=== PATIENT | male | born 1985 | race Caucasian/White ===

== ENCOUNTER 2018-01-28 21:00 | Emergency (ER) | payer MEDICAID ==
[2018-01-28] MEDS ORDERED: LORazepam 1 MG TAB PO ONE (21:47)
--- NOTE | 2018-01-28 21:47 | EDPHY ---
H & P Time Seen by Provider: 01/28/18 21:14 HPI/ROS: CHIEF COMPLAINT: "I'm withdrawing, I'm here because of her" HISTORY OF PRESENT ILLNESS: 32-year-old male arrives via private vehicle with his girlfriend. Patient states that he self discontinued his methadone 2 days ago "cold turkey" because he did not think was working for him. His primary complaint is high level of anxiety currently. States that the primary reason for coming to the ER is "because of her" (pointing to his girlfriend). Since discontinuing his methadone he has been drinking heavy amounts of alcohol, has also been using IV heroin, intranasal Adderall. Admits to alcohol use this evening. States that because it is currently Memorial Day of a long weekend he has been drinking more than usual. No suicidal or homicidal ideation. No abdominal pain. No chest pain. No hallucination. REVIEW OF SYSTEMS: A ten point review of systems was performed and is negative with the exception of the items mentioned in the HPI PAST MEDICAL & SURGICAL HISTORY: Polysubstance abuse SOCIAL HISTORY: Positive for alcohol use, IV heroin use, intranasal Adderall , IV methadone PHYSICAL EXAM (Prior to examination, patient consented to physical exam, hands were washed and my usual and customary physical exam procedures followed) 1) GENERAL: Well-developed, well-nourished, alert and oriented. Appears nontoxic answering questions appropriately 2) HEAD: Normocephalic, atraumatic 3) HEENT: Pupils equal, round, reactive to light bilaterally. Sclera anicteric. Nasopharynx, oropharynx, clear, no lesions. Moist mucous membrane smells of alcohol 4) NECK: Full range of motion, no meningeal signs. 5) LUNGS: Clear auscultation bilaterally, no wheezes, no rhonchi, no retractions. 6) HEART: Regular rate and rhythm, no murmur, no heave, no gallop. 7) ABDOMEN: No guarding, no rebound, no focal tenderness, negative McBurney's, negative Jean-Baptiste's, negative Rovsing's, negative peritoneal sign, 8) MUSCULOSKELETAL: Left medial bicep track loco noted. No signs of infection at this site. Distal neurovascular status is normal. Moving all extremities, no focal areas of tenderness, no obvious trauma. No peripheral edema or discoloration. 9) BACK: No CVA tenderness, no midline vertebral tenderness, no fluctuance, no step-off, no obvious trauma, no visual or palpable abnormality. 10) SKIN: No rash, no petechiae. 11) Psychiatric: Patient is oriented X 3, there is no agitation. DIFFERENTIAL DIAGNOSIS: In no particular include but limited to opiate withdrawal, acute alcohol intoxication, alcohol withdrawal, polysubstance abuse Smoking Status: Heavy smoker Constitutional: Initial Vital Signs Temperature (C) 36.9 C 01/28/18 21:08 Heart Rate 88 01/28/18 21:08 Respiratory Rate 15 01/28/18 21:08 Blood Pressure 144/87 H 01/28/18 21:08 O2 Sat (%) 91 L 01/28/18 21:08 O2 Delivery Mode Room Air O2 (L/minute) 2 MDM/Departure - MDM Medications Given: Discontinued Medications Chlordiazepoxide (Librium 25 Mg Prepack#6) 1 btl TAKEHOME EDNOW ONE Stop: 01/28/18 21:53 Last Admin: 01/28/18 21:58 Dose: 1 btl Lorazepam (Ativan) 1 mg PO EDNOW ONE Stop: 01/28/18 21:48 Last Admin: 01/28/18 21:58 Dose: 1 mg ED Course/Re-evaluation: This patient denies suicidal homicidal ideation. He admits to polysubstance abuse. Requesting prescription for methadone. Discussed my inability to provide prescription for methadone from the ER. He has a auto painter whom he sees. I recommend he contact her office 1st thing in the morning. I think [facility]. Doubt delirium tremens. I provided his girlfriend with this information she will plan on driving him there if he is agreeable with this. I do not think he meets criteria for 72 hr M1 hold. The patient and his girlfriend feel comfortable being discharged. Usual and customary discharge precautions and instructions provided. Care of patient under supervision of secondary supervising physician Dr Lira . - Depart Disposition: Home, Routine, Self-Care Clinical Impression: Alcohol abuse, Opiate withdrawal Condition: Good Instructions: Chlordiazepoxide (By mouth), Narcotic Abuse (ED), Abuse of Alcohol (ED) Referrals: [facility] [Outside] - As per Instructions
[2018-01-28] MEDS ORDERED: CHLORDIAZEPOXIDE 25MG PREPK#6 BTL TAKEHOME ONE (21:52)
[2018-01-28 22:24] VITALS: BP 118/88
== END 2018-01-28 22:21 | disposition home or self-care (01) ==
DX: F11.23 Opioid dependence with withdrawal (principal); F10.10 Alcohol abuse, uncomplicated; F17.200 Nicotine dependence, unspecified, uncomplicated

== ENCOUNTER 2018-03-27 01:07 | Emergency (ER) | payer MEDICAID ==
--- NOTE | 2018-03-27 01:37 | EDPHY ---
H & P Stated Complaint: cut middle finger on glass doing dishes, 45 min ago Time Seen by Provider: 03/27/18 01:37 HPI/ROS: HPI CHIEF COMPLAINT: Right middle finger laceration HISTORY OF PRESENT ILLNESS: 32-year-old male, otherwise healthy, history of alcoholism, drinks alcohol daily, presents emergency room with a finger laceration. He was cleaning a wine glass at home and broke. He sustained a laceration to the palmar side right middle finger. Laceration approximately 5 cm in U shaped form. No tendon vomit no arterial involvement. No bony involvement. States his tetanus shot is up-to-date Past Medical History: Daily alcohol use, on methadone Past Surgical History: Denies significant surgical history Social History: Daily alcohol use. Works as a pizza chef Family History: Noncontributory ROS REVIEW OF SYSTEMS: A comprehensive 10 point review of systems is otherwise negative aside from elements mentioned in the history of present illness. Exam Constitutional smells of alcohol, triage nursing summary reviewed, vital signs reviewed, awake/alert. Eyes normal conjunctivae and sclera, EOMI, PERRLA. HENT normal inspection, atraumatic, moist mucus membranes, no epistaxis, neck supple/ no meningismus, no raccoon eyes. Respiratory clear to auscultation bilaterally, normal breath sounds, no respiratory distress, no wheezing. Cardiovascular rate normal, regular rhythm, no murmur, no edema, distal pulses normal. Gastrointestinal soft, non-tender, no rebound, no guarding, normal bowel sounds, no distension, no pulsatile mass. Genitourinary no CVA tenderness. Musculoskeletal no midline vertebral tenderness, full range of motion, no calf swelling, no tenderness of extremities, no meningismus, good pulses, neurovascularly intact. Skin right hand: Palmar side middle finger shows a U shaped laceration present. Neurologic awake, alert and oriented x 3, AAOx3, moves all 4 extremities equally, motor intact, sensory intact, CN II-XII intact, normal cerebellar, normal vision, normal speech. Psychiatric normal mood/affect. Heme/Lymph/Immune no lymphadenopathy. Differential Diagnosis: Includes but is not limited to in a particular order right hand laceration, finger laceration, soft tissue injury, bony involvement, tendon involvement, arterial injury, foreign body Medical Decision Making: For plan for this patient's tetanus shot is up-to- date. Will x-ray his digit to make sure there is no foreign body, clean his wound copiously, and repair his laceration. Re-evaluation: Laceration Repair Procedure: Verbal Consent was obtained, Under sterile conditions, The patient had lidocaine with epinephrine used approximately 6ccs to local anesthetize the Right Middle finger U shaped, 5CM Laceration. The wound was copiously irrigated with sterile fluid, the wound was explored for foreign bodies there were none visualized, the wound was explored with a sterile glove to the base. There are no deep structures involved, including no arterial injury. FIVE 6.O Prolene interrupted Sutures were placed in this patient's laceration. He had good close approximation of the wound edges. He Tolerated this well. Patient has been splinted for immobilization of the finger laceration. Patient understands have sutures removed in 14 days. Patient understands to keep his wound clean, dry and intact. Warm soapy water is fine. Watch for infection Sutures out in 14 days Stay in splint for comfort and protection. Source: Patient - Personal History Current Tetanus/Diphtheria Vaccine: Yes - Medical/Surgical History Hx Asthma: No Hx Chronic Respiratory Disease: No Hx Diabetes: No Hx Cardiac Disease: No Hx Renal Disease: No Hx Cirrhosis: No Hx Alcoholism: Yes Hx HIV/AIDS: No Hx Splenectomy or Spleen Trauma: No Other PMH: denies - Social History Smoking Status: Current every day smoker Constitutional: Initial Vital Signs Temperature (C) 36.5 C 03/27/18 01:10 Heart Rate 86 03/27/18 01:10 Respiratory Rate 20 03/27/18 01:10 Blood Pressure 128/69 H 03/27/18 01:10 O2 Sat (%) 93 03/27/18 01:10 O2 Delivery Mode Room Air Allergies/Adverse Reactions: No Known Allergies Allergy (Unverified 03/27/18 01:10) Home Medications: Medication Instructions Recorded METHADONE HCL 03/19/18 Departure - Departure Disposition: Home, Routine, Self-Care Clinical Impression: Finger laceration Qualifiers: Encounter type: initial encounter Finger: middle finger Damage to nail status: without damage Foreign body presence: without foreign body Laterality: right Qualified Code(s): S61.212A - Laceration without foreign body of right middle finger without damage to nail, initial encounter Condition: Good Instructions: Care For Your Stitches (ED), Laceration (ED) Additional Instructions: 1. Watch for signs of infection 2. Keep the area clean, dry and intact 3. Splint for comfort and protection 4. Sutures need to be removed in 14 days return emergency room to have the sutures removed. 5. You may get warm soapy water on your wound to keep it clean. Nothing directly in the wound. Referrals: NONE *PRIMARY CARE P,. [Primary Care Provider] - As per Instructions
[2018-03-27] MEDS ORDERED: IBUPROFEN 600 MG TAB PO ONE (02:57)
[2018-03-27 04:42] VITALS: BP 130/68
== END 2018-03-27 04:42 | disposition home or self-care (01) ==
PROC: 0HQFXZZ Repair Right Hand Skin, External Approach (ICD-10-PCS; principal; 2018-03-27)
DX: S61.212A Laceration without foreign body of right middle finger without damage to nail, initial encounter (principal); F17.200 Nicotine dependence, unspecified, uncomplicated; W25.XXXA Contact with sharp glass, initial encounter; Y92.009 Unspecified place in unspecified non-institutional (private) residence as the place of occurrence of the external cause; Y99.8 Other external cause status; Y93.89 Activity, other specified
CPT/HCPCS: L3925

== ENCOUNTER 2019-02-03 16:13 | Emergency (ER) | payer MEDICAID, OTHER | END 2019-02-03 18:31 | disposition home or self-care (01) ==